=== PATIENT | female | born 1940 | race African-American/Black ===

== ENCOUNTER 2017-02-09 09:33 | Emergency (ER) | payer OTHER ==
[~2017-02-09 09:33] MED LIST: 1-ME1LIQ PO; BENA20 PO; CARV25TA PO; FURO1TAB93 PO; LORTA5 PO; LOVA1TAB47 PO; VITA100018 PO
[2017-02-09 09:35] VITALS: BP_SYST 197; BP_SYST 222; BP_DIAS 95; BP_DIAS 98; PULSE 61; RESP 12; TEMP 97.8; O2SAT 97
[2017-02-09] MEDS ORDERED: AMLO10TA2 PO (09:50)
[2017-02-09] MEDS ORDERED: CALC600T5 PO (09:50)
[2017-02-09] MEDS ORDERED: OXYB5TAB8 PO (09:50)
[2017-02-09] MEDS ORDERED: FURO40TA PO (09:50)
[2017-02-09] MEDS ORDERED: CARV25TA PO (09:50)
[2017-02-09] MEDS ORDERED: LOVA20TA PO (09:50)
[2017-02-09] MEDS ORDERED: BENA20TA PO (09:50)
[2017-02-09] MEDS ORDERED: POTA1TAB4 PO (09:50)
[2017-02-09] MEDS ORDERED: MELO15TA20 PO ×2 (09:50→12:06)
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
[2017-02-09 12:36] VITALS: BP 165/71
== END 2017-02-09 12:40 | disposition home or self-care (01) ==
LOC: NEPD 09:33
DX: S39.012A Strain of muscle, fascia and tendon of lower back, initial encounter (principal); S86.912A Strain of unspecified muscle(s) and tendon(s) at lower leg level, left leg, initial encounter; I10 Essential (primary) hypertension; M19.90 Unspecified osteoarthritis, unspecified site; E78.00 Pure hypercholesterolemia, unspecified; V43.52XA Car driver injured in collision with other type car in traffic accident, initial encounter; Z79.899 Other long term (current) drug therapy; Z88.2 Allergy status to sulfonamides
CPT/HCPCS: 73502; 73590; 99284